=== PATIENT | female | born 1980 | race African-American/Black ===

== ENCOUNTER → 2018-06-25 | Day surgery (SDC) | payer SELFPAY ==
[~2018-06-25] VITALS: Ht 154.9 cm; Wt 95.7 kg
--- NOTE | 2018-06-25 16:05 | Operative Report ---
Operative/Inv Procedure Report Surgery Date: 06/25/18 Name of Procedure: Liposuction anterior abdominal wall upper and lower back Pre-Operative Diagnosis: Cosmetic lipodystrophy trunk Post-Operative Diagnosis: Same Estimated Blood Loss: scant (250) Surgeon/Towel Folder: Delfino Joe MD Anesthesia: general endotracheal tube Operative/Procedure Note Note: Patient was counseled extensively in regards to the procedure the alternatives the risks and expected outcomes as relates to her request for surgical intervention via liposuction to treat the abdominal lipodystrophy of the anterior abdominal wall upper and lower back. The patient has an excessive skin would likely require skin excision procedures but she is not go to have those at this point would like only liposuction knowing the limitations. She has thick dense rolls of the multiple number of the back and she was told that these are not likely resolved but they should be improved. Asymmetries and irregularities in the skin and subcutaneous tissue are expected this was discussed and accepted by the patient. We also talked about infection bleeding pain numbness seroma hematoma loss of skin tissue. She understands agrees and signed informed consent after being marked in the standing position. She was brought to the operating placed supine on the table. Venodyne boots were placed and then general anesthesia was established intravenous antibiotics were given. The abdominal wall was prepped and draped in usual sterile fashion. Small stab incisions were made in the umbilicus and in the groin crease and tumescent fluid was placed and liposuction was carried out with the safe technique using 3 and 4 cannulas. Wounds were closed with sutures and glue. She was then turned into the prone position and appropriately padded. Tumescent fluid was placed in the areas of liposuction consisting of the upper and lower back. Stab incisions were made tumescent fluid was left in place for approximately 10 minutes and then liposuction was completed with volumes recorded in the chart. Incisions were closed with sutures and glue and an abdominal binder was used.
== END ==
LOC: STS 02:32
DX: Z41.1 Encounter for cosmetic surgery (principal); E65 Localized adiposity; Z68.38 Body mass index [BMI] 38.0-38.9, adult; J45.909 Unspecified asthma, uncomplicated; E66.9 Obesity, unspecified
CPT/HCPCS: 81025; J0131; J0171; J0690; J2001; J2250; J3490